=== PATIENT | male | born 1990 | race Caucasian/White ===

== ENCOUNTER 2019-03-11 16:53 | Outpatient (CLI) | payer OTHER ==
[2019-03-11] MEDS ORDERED: GADOBUTROL 10 MMOL/10 ML VIAL IVP ONE (19:05)
--- NOTE | 2019-03-12 07:47 | MRI Report ---
Reason: HETERONYMOUS BILATERAL FIELD DEFECTS Procedure Date: 03/11/2019 Accession Number: [id number] / [id number] Procedure: MRI - Brain W/WO CPT Code: FULL RESULT: EXAM: MRI BRAIN AND ORBITS WITHOUT AND WITH CONTRAST EXAM DATE: 03/11/2019 07:26 PM. CLINICAL HISTORY: Heteronymous bilateral field defects. COMPARISON: None. TECHNIQUE: Multiplanar, multisequence T1-weighted and fluid-sensitive MR sequences of the brain were performed before and after administration of intravenous contrast. Sequences optimized for routine and orbit evaluation. Other: None. IV Contrast: 10 mL Gadavist. FINDINGS: Brain Volume: Normal for age. Parenchyma: No acute hemorrhage, mass, or infarct. No significant altamirano matter or white matter signal abnormality is appreciated. A few prominent perivascular spaces are seen in the glover radiata. A small cystic focus is seen in the right frontal glover radiata suggesting dilated perivascular space. A focal 3 mm area of enhancement is seen in the posterior right parietal region. This is deep within a sulcus (axial series 1502, image 77; sagittal series 1501, image 93; coronal series 1503, image 106). On axial and coronal images, this appears to be cortical based but on sagittal reformats may be within the subarachnoid space of the sulcus. On sagittal reformats, a thin linear enhancing vessel is seen superior and inferior to this nodule. No additional areas of abnormal intracranial enhancement are appreciated. Ventricles/Cisterns: The ventricles, sulci, and cisterns are normal. No abnormal extra-axial fluid collection or hemorrhage. Orbits: Symmetric and unremarkable. The globes, optic nerve sheath complex, extraocular muscles, and orbital fat are unremarkable. The lacrimal glands are symmetric and unremarkable. Sella Turcica: The pituitary gland, cavernous sinuses, suprasellar cistern and optic chiasm are unremarkable. IAC: Symmetric and unremarkable. Vasculature: Normal signal flow void is seen in the major arterial structures at the skull base. The dural sinuses are patent and enhance normally. Sinuses: No acute sinus disease. Bones: No focal pathologic appearing marrow signal changes. Other: The partially visualized nasopharynx and infratemporal fossa are unremarkable. IMPRESSION: 1. There is a questionable 3 mm focus of enhancement seen within a sulcus in the posterior right parietal region. It is unclear whether this is cortical based or in the subarachnoid space. A thin linear vessel is seen along the superior and inferior margin of this on sagittal reformats. This could represent small venous varix rather than a parenchymal focus of abnormal enhancement. Subtle cortical based inflammatory or neoplastic process is considered less likely. Follow-up examination in three months may be of value. 2. Otherwise unremarkable MRI of the brain. No infarct or hemorrhage. 3. Normal MRI of the orbits. RADIA
== END 2019-03-11 16:54 | disposition home or self-care (01) ==
LOC: DI 16:53
PROVIDERS: ATTEND Student in an Organized Health Care Education/Training Program
DX: H53.47 Heteronymous bilateral field defects (principal)
CPT/HCPCS: 70553

== ENCOUNTER 2021-01-31 13:55 | Outpatient (CLI) | payer OTHER | END 2021-01-31 13:56 | disposition short-term general hospital (02) | LOC: EMS 13:55 | DX: R41.0 Disorientation, unspecified (principal); R53.1 Weakness; R47.81 Slurred speech | CPT/HCPCS: A0425; A0427 ==

== ENCOUNTER 2021-08-09 06:40 | Outpatient (CLI) | payer OTHER | END 2021-08-09 06:41 | disposition critical access hospital (66) | LOC: EMS 06:40 | DX: R56.9 Unspecified convulsions (principal); I69.351 Hemiplegia and hemiparesis following cerebral infarction affecting right dominant side | CPT/HCPCS: A0425; A0427 ==

== ENCOUNTER 2021-08-09 06:56 | Emergency (ER) | payer OTHER ==
--- NOTE | 2021-08-09 07:35 | ED Physician Documentation ---
PD HPI SEIZURE - Stated complaint Stated Complaint: SZ - Chief complaint Chief Complaint: Neuro - History obtained from History obtained from: Patient, Family, EMS - History of Present Illness Timing - onset: Today Witnessed: Witnessed Number of seizures: Single, Lasted minutes Description of seizure activity: Generalized, Tonic clonic Injury during seizure: Bit tongue Associated symptoms: None History of seizures: First seizure, Other (Hx of CVA with clot) Contributing factors: Sleep deprivation (had a hard time sleeping last night) Similar symptoms before: Has not had sx before Recently seen: Other (preparing to move) - Additional information Additional information: 31-year-old male with a 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 He is on Xarelto.He was in his usual state of health which includes a speech deficit as well as a right-sided weakness in both upper and lower extremities when his discovered what she thought was him snoring and realized he was having a seizure. He has not had seizure with this previously. His describes the patient is having a TIA followed by a CVA and this occurred about 6-1/2 months ago. He was treated at [facility] with clot retrieval he is on anticoagulation.He has had a recent echo and continues to have some clot in his heart. The patient states that he has not been feeling ill recently and he did go out with friends last night he had 2 beers. This is not an unusual event for the patient. He is getting ready to move with his . Review of Systems Constitutional: denies: Fever Eyes: denies: Decreased vision Ears: denies: Ear pain Nose: denies: Congestion Throat: reports: Sore throat Cardiac: denies: Chest pain / pressure, Palpitations Respiratory: denies: Dyspnea, Cough GI: denies: Abdominal Pain, Nausea, Vomiting, Constipation, Diarrhea : denies: Dysuria, Frequency Skin: denies: Rash Musculoskeletal: denies: Neck pain, Back pain, Extremity pain Neurologic: reports: Focal weakness (right sided similar to prior), Difficulty speaking (similar to prior). denies: Generalized weakness PD PAST MEDICAL HISTORY - Present Medications Home Medications: Ambulatory Orders Medication Instructions Recorded Confirmed Atorvastatin Calcium 40 mg PO DAILY 08/09/21 08/09/21 Escitalopram Oxalate [Lexapro] 5 mg PO DAILY 08/09/21 08/09/21 Levetiracetam [Keppra] 1,000 mg PO BID #40 tablet 08/09/21 Magnesium Oxide [Mag-Oxide] 600 mg PO DAILY 08/09/21 08/09/21 Rivaroxaban [Xarelto] 20 mg PO DAILY 08/09/21 08/09/21 - Allergies Allergies/Adverse Reactions: Allergies Allergy/AdvReac Type Severity Reaction Status Date / Time No Known Drug Allergies Allergy Verified 08/09/21 07:04 PD ED PE NORMAL - Vitals Vital signs reviewed: Yes (normal) - General General: No acute distress, Well developed/nourished, Other (31 y/o male with facial asymetry talks with some dysarthria has trouble recalling events. ) - HEENT HEENT: Atraumatic, PERRL, EOMI - Neck Neck: Supple, no meningeal sign, No bony TTP - Cardiac Cardiac: RRR, No murmur - Respiratory Respiratory: No respiratory distress, Clear bilaterally - Abdomen Abdomen: Normal bowel sounds, Soft, Non tender, Non distended, No organomegaly - Back Back: No CVA TTP, No spinal TTP - Derm Derm: Normal color, Warm and dry, No rash - Extremities Extremities: No deformity, No edema - Neuro Neuro: Other (Speech is dysarthric but without lack of content. The right arm is held in flexion with the wrist in flexion and the fist gripped. There is mild weakness to the right lower extremity.) Eye Opening: Spontaneous Motor: Obeys Commands Verbal: Confused (The patient is having trouble recalling events of the night prior.) GCS Score: 14 - Psych Psych: Normal mood, Normal affect Results - Vitals Vitals: Vital Signs - 24 hr 08/09/21 08/09/21 08/09/21 07:04 07:39 08:09 Temperature 36.3 C L Heart Rate 73 67 64 Respiratory 20 18 18 Rate Blood Pressure 118/67 114/71 106/76 O2 Saturation 96 97 95 08/09/21 08/09/21 08:30 09:00 Temperature Heart Rate 62 60 Respiratory 15 16 Rate Blood Pressure 124/64 121/63 O2 Saturation 98 96 Oxygen O2 Source Room air - EKG (time done) 0732 Rate: Rate (enter#) (62) Rhythm: NSR QRS: Low voltage Compare to prior EKG: Old EKG unavailable Computer interpretation: Agree with computer - Labs Labs: Laboratory Tests 08/09/21 08/09/21 08/09/21 07:41 07:41 07:41 WBC 8.7 RBC 4.79 Hgb 15.7 Hct 43.9 MCV 91.6 MCH 32.8 H MCHC 35.8 RDW 11.9 L Plt Count 201 MPV 8.8 Neut # (Auto) 6.0 Lymph # (Auto) 1.9 [place] # (Auto) 0.6 Eos # (Auto) 0.1 Baso # (Auto) 0.0 Absolute Nucleated RBC 0.00 Nucleated RBC % 0.0 PT 14.9 H INR 1.3 H APTT 28.0 Sodium 138 Potassium 3.8 Chloride 103 Carbon Dioxide 26 Anion Gap 9.0 BUN 20 Creatinine 1.2 Estimated GFR (MDRD) 72 L Glucose 108 H Calcium 9.1 Total Bilirubin 0.6 AST 24 ALT 30 Alkaline Phosphatase 59 Total Protein 6.5 L Albumin 4.0 Globulin 2.5 Albumin/Globulin Ratio 1.6 Lipase 34 Urine Color Urine Clarity Urine pH Ur Specific [place] Urine Protein Urine Glucose (UA) Urine Ketones Urine Occult Blood Urine Nitrite Urine Bilirubin Urine Urobilinogen Ur Leukocyte Esterase Ur Microscopic Review Urine Culture Comments Urine Opiates Screen Ur Oxycodone Screen Urine Methadone Screen Ur Propoxyphene Screen Ur Barbiturates Screen Ur Tricyclics Screen Ur Phencyclidine Scrn Ur Amphetamine Screen U Methamphetamines Scrn U Benzodiazepines Scrn Urine Cocaine Screen U Cannabinoids Screen Ethyl Alcohol < 5.0 08/09/21 08:10 WBC RBC Hgb Hct MCV MCH MCHC RDW Plt Count MPV Neut # (Auto) Lymph # (Auto) [place] # (Auto) Eos # (Auto) Baso # (Auto) Absolute Nucleated RBC Nucleated RBC % PT INR APTT Sodium Potassium Chloride Carbon Dioxide Anion Gap BUN Creatinine Estimated GFR (MDRD) Glucose Calcium Total Bilirubin AST ALT Alkaline Phosphatase Total Protein Albumin Globulin Albumin/Globulin Ratio Lipase Urine Color YELLOW Urine Clarity CLEAR Urine pH 6.0 Ur Specific [place] 1.025 Urine Protein NEGATIVE Urine Glucose (UA) NEGATIVE Urine Ketones NEGATIVE Urine Occult Blood TRACE-INTA Urine Nitrite NEGATIVE Urine Bilirubin NEGATIVE Urine Urobilinogen 0.2 (NORMAL) Ur Leukocyte Esterase NEGATIVE Ur Microscopic Review NOT INDICATED Urine Culture Comments NOT INDICATED Urine Opiates Screen NEGATIVE Ur Oxycodone Screen NEGATIVE Urine Methadone Screen NEGATIVE Ur Propoxyphene Screen NEGATIVE Ur Barbiturates Screen NEGATIVE Ur Tricyclics Screen NEGATIVE Ur Phencyclidine Scrn NEGATIVE Ur Amphetamine Screen NEGATIVE U Methamphetamines Scrn NEGATIVE U Benzodiazepines Scrn NEGATIVE Urine Cocaine Screen NEGATIVE U Cannabinoids Screen NEGATIVE Ethyl Alcohol - Rads (name of study) CTA neck Radiology: Prelim report reviewed (Impression: No significant stenosis within the major extracranial arterial circulation. The estimated of stenosis included in the report of the imaging study was calculated using nascent method.), EMP read indepedently, See rad report Procedures - IVC sono (time) 0745 Bedside IVC sono: IVC measures (cm) (1.71), IVC collapsed c insp (cm) (0.93), Euvolemia PD MEDICAL DECISION MAKING - ED course Complexity details: reviewed old records, reviewed results, re-evaluated patient, considered differential, d/w patient, d/w family ED course: 31-year-old male with a clotting disorder s/p CVA was in his usual state of health yesterday and this morning his awoke to him having a seizure. The patient is cleared his seizure and his postictal period. I consulted the patient's neurologist Dr. Dubois from [facility] neurosciences and he recommended we administer 1000 mg of Keppra to this patient and do this intravenously here in the emergency department and place the patient on 1000 mg twice per day. He would like a follow-up. Imaging studies demonstrate the significant encephalomalacia without new findings. There is a definite structural abnormality to the brain the patient has had a seizure he does not c urrently appear ill otherwise. We will place him on Keppra 1000 twice daily. CTA head Impression: Moderately sized area of encephalomalacia and gliosis in the left MCA territory involving the left frontal lobe and left anteromedial temporal lobe. This is consistent with remote infarct. There are no CT findings of acute large territory infarct, although some infarct extension at the margins of a remote infarct would likely be occult on CT no acute intracranial abnormalities otherwise. Attenuation of left MCA vascular supplying the infarcted territory otherwise unremarkable CT angiogram of the head. Departure - Departure Disposition: 01 Home, Self Care Clinical Impression: Seizure Condition: Stable Instructions: Levetiracetam tablets, ED Seizure New Onset Unk Cause Follow-Up: TERESITA PATEL DO [Primary Care Provider] - Dr Silvino [Other] Prescriptions: Levetiracetam [Keppra] 1,000 mg PO BID #40 tablet Comments: [place], today it looks like you have had a seizure and there is some structural abnormality to your brain and this is not a surprise. We did not find your ill otherwise today and we have started you on a anticonvulsant. The medicine we have prescribed is something called Keppra and will need to be taken twice per day. It has been e-scribed to [facility] in [place]. Follow-up with Dr. Dubois in the next 1 to 2 weeks. You will need a follow-up to have enough medication for when you move.The most common side effects for Keppra are somnolence and this can occur as long as a month into treatment. That is the most common reason for discontinuation of treatment. There can be some behavioral abnormalities as well. I have included a monograph on Keppra for you.
[2021-08-09] MEDS ORDERED: IOVERSOL 320 100 ML VIAL IVP ONE ×2 (07:42→08:40)
[2021-08-09 07:48] LABS: BASOPHILS % (AUTO) 0.5 %; EOSINOPHILS # (AUTO) 0.1 10^3/uL (0.0-0.7); EOSINOPHILS % (AUTO) 1.2 %; HCT - HEMATOCRIT 43.9 % (42.0-52.0); HGB - HEMOGLOBIN 15.7 g/dL (14.0-18.0); LYMPHOCYTES # (AUTO) 1.9 10^3/uL (1.5-3.5); LYMPHOCYTES % (AUTO) 21.4 %; MEAN CORPUSCULAR HEMOGLOBIN 32.8 pg (27.0-31.0); MEAN CORPUSCULAR HGB CONC 35.8 g/dL (32.0-36.0); MEAN CORPUSCULAR VOLUME 91.6 fL (80.0-94.0); MEAN PLATELET VOLUME 8.8 fL (7.4-11.4); MONOCYTES # (AUTO) 0.6 10^3/uL (0.0-1.0); MONOCYTES % (AUTO) 6.9 %; NEUTROPHILS % (AUTO) 69.8 %; PLT - PLATELET COUNT 201 10^3/uL (130-450); RED BLOOD COUNT 4.79 10^6/uL (4.70-6.10); RED CELL DISTRIBUTION WIDTH 11.9 % (12.0-15.0); WHITE BLOOD COUNT 8.7 x10^3/uL (4.8-10.8)
[2021-08-09 07:53] LABS: INR 1.3 (0.8-1.2); PT - PROTHROMBIN TIME 14.9 secs (9.9-12.6)
[2021-08-09 08:00] LABS: ALBUMIN/GLOBULIN RATIO 1.6 (1.0-2.2); ALKALINE PHOSPHATASE 59 IU/L (42-121); ALT ALANINE AMINOTRANSFERASE 30 IU/L (10-60); AST ASPARTATE AMINOTRANSFERASE 24 IU/L (10-42); BILIRUBIN,TOTAL 0.6 mg/dL (0.2-1.0); BUN - BLOOD UREA NITROGEN 20 mg/dL (6-20); CALCIUM 9.1 mg/dL (8.5-10.3); CARBON DIOXIDE - CO2 26 mmol/L (21-32); CHLORIDE 103 mmol/L (101-111); CREATININE 1.2 mg/dL (0.6-1.2); ETOH - ETHANOL < 5.0 mg/dL; GFR - MDRD 72 (>89); GLUCOSE 108 mg/dL (70-100); LIPASE 34 U/L (22-51); POTASSIUM 3.8 mmol/L (3.5-5.0); SODIUM 138 mmol/L (135-145); TOTAL PROTEIN 6.5 g/dL (6.7-8.2)
[2021-08-09 08:19] LABS: MUDS CUTOFF CONCENTRATIONS CUTOFF CONC BELOW:
[2021-08-09 08:21] LABS: BILIRUBIN,URINE NEGATIVE (NEGATIVE); GLUCOSE, URINE (UA) NEGATIVE (NEGATIVE); KETONES,URINE (UA) NEGATIVE (NEGATIVE); LEUKOCYTE ESTERASE, URINE NEGATIVE (NEGATIVE); NITRITE,URINE NEGATIVE (NEGATIVE); OCCULT BLOOD,URINE TRACE-INTA (NEGATIVE); PROTEIN,URINE NEGATIVE (NEGATIVE); UROBILINOGEN,URINE 0.2 (NORMAL) E.U./dL (NORMAL)
[2021-08-09 08:22] LABS: CLARITY,URINE CLEAR (CLEAR)
[2021-08-09 08:31] LABS: AMPHETAMINE SCREEN,URINE NEGATIVE (NEGATIVE); BARBITURATE SCREEN,UR NEGATIVE (NEGATIVE); BENZODIAZEPINES SCREEN, URINE NEGATIVE (NEGATIVE); COCAINE SCREEN URINE NEGATIVE (NEGATIVE); METHADONE SCREEN, URINE NEGATIVE (NEGATIVE); METHAMPHETAMINES SCREEN, URINE NEGATIVE (NEGATIVE); OPIATE SCREEN, URINE NEGATIVE (NEGATIVE); OXYCODONE SCREEN, URINE NEGATIVE (NEGATIVE); PROPOXYPHENE SCREEN, URINE NEGATIVE (NEGATIVE); THC CANNABINOID SCREEN, URINE NEGATIVE (NEGATIVE); TRICYCLIC ANTIDEPRESSANT,URINE NEGATIVE (NEGATIVE)
[2021-08-09] MEDS ORDERED: levETIRAcetam INJ 1,000 MG in SODIUM CHLORIDE 0.9% 100ML 100 ML IV STA (08:38)
--- NOTE | 2021-08-09 08:55 | CT Report ---
PROCEDURE: ANGIO NECK W INDICATIONS: R sided deficit seizure CONTRAST: IV CONTRAST: Optiray 320 ml: 80 PO CONTRAST: *NO PO CONTRAST TECHNIQUE: After the administration of intravenous contrast, 1.5 mm axial sections acquired from the aortic arch to the [place] of [place]. Coronal 3-D maximum intensity projection (MIP) and/or volume rendering ref ormats were then performed. For radiation dose reduction, the following was used: automated exposur e control, adjustment of mA and/or kV according to patient size. COMPARISON: None. FINDINGS: Image quality: Excellent. Carotid system: The great vessels demonstrate a conventional anatomy as they arise from the aortic a [facility]. The origins of the common carotid arteries appear patent. The common carotid arteries demonstr ate normal calibers and courses. The bifurcation regions appear normal bilaterally. The internal ca rotid arteries demonstrate normal caliber and course. Posterior circulation: The origins of the vertebral arteries appear patent. The more superior porti ons of the vertebral arteries demonstrate normal course and caliber. They join to form a normal appe aring basilar artery. Soft tissues: Visualized neck soft tissues demonstrate no suspicious abnormalities. The thyroid is normal in size and there are no incidental findings. Bones: No suspicious bony lesions. Visualized cervical spine appears normally aligned. IMPRESSION: No significant stenosis within the major extracranial arterial circulation The estimate of stenosis included in the report of the imaging study was calculated using the NASCET method. Reviewed by: Cornelius Doll MD on 08/09/2021 8:53 AM PDT Approved by: Cornelius Doll MD on 08/09/2021 8:53 AM PDT Station ID: [id number]
--- NOTE | 2021-08-09 08:58 | CT Report ---
PROCEDURE: ANGIO HEAD W/WO INDICATIONS: R sided deficit seizure CONTRAST: IV CONTRAST: Optiray 320 ml: 80 PO CONTRAST: *NO PO CONTRAST TECHNIQUE: Precontrast 4.5 mm thick angled axial sections acquired from the foramen magnum to the vertex. Afte r the administration of intravenous contrast, 1 mm thick sections acquired through the [place] of [place] is. Postcontrast 4.5 mm thick sections then re-acquired from the foramen magnum to the vertex. 3-di mensional [id number] (MIP) and/or volume rendering reformats were acquired of the c entral intracranial vasculature. For radiation dose reduction, the following was used: automated ex posure control, adjustment of mA and/or kV according to patient size. COMPARISON: 03/11/2019 MRI brain FINDINGS: There is a moderately sized area of encephalomalacia with adjacent gliosis in the left MCA territory, involving the left frontal lobe, insular region, and left anteromedial temporal lobe. There is no ac salvador intracranial hemorrhage or abnormal extra-axial fluid collection identified. No evidence of mass effect or midline shift. The ventricular system and basilar cisterns are patent. Jamil-white matter di fferentiation is maintained with no CT evidence of an acute large territory infarct. There is continuation of a left MCA vasculature in the region of infarct, with progressive decrease i n caliber/opacification of the vessels near the region of the MCA trifurcation. Remaining intracrania l arterial circulation appears widely patent. IMPRESSION: Moderately sized area of encephalomalacia and gliosis in the left MCA territory involving the left fr ontal lobe and left anteromedial temporal lobe. This is consistent with a remote infarct. There are n o CT findings of an acute large territory infarct, although some infarct extension at the margins of the remote infarct would likely be occult on CT No acute intracranial abnormality otherwise. Attenuation of the left MCA vasculature supplying the infarcted territory. Otherwise unremarkable CT angiogram of the head. Reviewed by: Cornelius Doll MD on 08/09/2021 8:57 AM PDT Approved by: Cornelius Doll MD on 08/09/2021 8:57 AM PDT Station ID: [id number]
[2021-08-09 09:31] VITALS: BP 113/63
== END 2021-08-09 09:54 | disposition home or self-care (01) ==
LOC: EDUNIT# → ED 06:56
DX: R56.9 Unspecified convulsions (principal); I69.351 Hemiplegia and hemiparesis following cerebral infarction affecting right dominant side; I69.321 Dysphasia following cerebral infarction; Z79.01 Long term (current) use of anticoagulants
CPT/HCPCS: 36415; 70496; 70498; 80053; 80306; 80320; 81003; 83690; 85025; 85610; 85730; 93005; 96365; 99284; Q9967; 81001; 87086